=== PATIENT | female | born 1975 | race Caucasian/White ===

== ENCOUNTER 2016-11-27 15:56 | Emergency (ER) | payer OTHER ==
--- NOTE | 2016-11-27 17:19 | DIAGNOSTIC IMAGING REPORT ---
PROCEDURE: XR FOOT 3 VIEWS - LEFT INDICATION: TRAUMA/INJURY TECHNIQUE: Three views. COMPARISON: None. FINDINGS: Osseous structures and joint spaces are normal. IMPRESSION: 1. Normal left foot.
--- NOTE | 2016-11-27 17:29 | ED CLINICAL REPORT ---
Clinical Report - Physicians/Mid Levels [facility] [address] [place] [place] [address] 11/27/2016 15:56 Patient: TIM YOST Time Seen: 16:21 Nov 27 2016. Arrived- By private vehicle. Historian- patient and family. HISTORY OF PRESENT ILLNESS Chief Complaint: Injury to the left foot. The injury happened just prior to arrival. Occurred at home. The patient sustained a direct blow and crush injury. Patient is experiencing severe pain. Patient denies injury to the head or neck. (Patient tripped over her flip flop with her left foot, sustaining injury to her left foot just prior to arrival in the stair. Deniesany prior injury to the area. He denies other injury. Patient reports her son driving her here.). REVIEW OF SYSTEMS The patient complains of pain on weight bearing. All systems otherwise negative, except as recorded above. PAST HISTORY The patient has not had a prior injury to the same area. Problems: Cellulitis. Asthma. MRSA Infection. Gastritis. Ovarian Cyst. Abdominal Pain. Bronchitis. Sprain. Dental Abscess. Otitis Media. Headache. Tension-Type Headache. Substance Abuse. Acute Pain. Sinusitis. Immunizations. LNMP - Last Normal Menstrual Period. Herpes Genitalis. Lymphadenitis. Additional Surgeries: Back Surgery. Hysterectomy. Oophorectomy. Salpingectomy. Shoulder Surgery. Tubal Ligation. Medications: None. Allergies: No Known Drug Allergy. SOCIAL HISTORY Smoker- current status unknown. No alcohol use or drug use. ADDITIONAL NOTES The nursing notes have been reviewed. PHYSICAL EXAM Vital Signs: 11/27/2016 16:04 HR: 114. RR: 20. O2 saturation: 98%. Temp: 98.2 F. Appearance: Alert. Appears to be in pain. Patient in mild distress. Head: Head atraumatic. Neck: Normal inspection. Neck supple. CVS: Normal heart rate and rhythm. Heart sounds normal. Respiratory: No respiratory distress. Breath sounds normal. Skin: Skin warm. Extremities: Foot/ankle soft-tissue tenderness. Ankle stable. Left medial ankle. No tenderness or laceration. Left lateral ankle. No tenderness or swelling. Base of the left 5th metatarsal: tenderness, swelling and abrasion. Weight bearing painful. Neurovascular intact distally. No laceration, puncture wound, foreign body or deformity. Left heel. No tenderness or swelling. No signs of infection present in the feet or ankles. (no calcaneous, no lateral malleolus, ankle stable.). Gait: Gait not tested due to pain. Neuro: Oriented X 3. LABS, X-RAYS, AND EKG Lt Foot X-ray: (IMPRESSION: 1. Normal left foot. Electronically Final signed by:Jesus Prieto MD 11/27/2016 5:20:03 PM). PROGRESS AND PROCEDURES Course of Care: X-ray reviewed no signs of obvious fracture. Patient's continues to have pain, small abrasion overlying which was irrigated and dressings applied. Patient placed in a boot, medication as R fracture she is to follow-up in 8-10 days if the pain persists. Patient has crutches at home. Patient given a medication here. She can utilize a boot, case there is a fracture she would've had the correct treatment. No obvious signs of fracture in the ER today. 11/27/2016 16:16 HR: 105. Patient is stable. Symptoms better. Patient/family counseled. Disposition: Discharged. Condition: good. CLINICAL IMPRESSION Acute pain. Single superficial abrasion to the left foot.Treatment of abrasion not delayed. No infection or abrasion with foreign body present. Contusion to the left foot. Crush injury to the left foot. INSTRUCTIONS Apply ice. Protect wound and keep wound area clean. Apply bacitracin twice daily. Elevate affected areas above chest level. You may walk and bear weight as tolerated. (YOUR XRAY LOOKS GREAT, as read by me and radiology If your pain persists, does not improve over the next 8-10 days for a swallow to have repeat imaging, sometimes small fractures are missed on initial x-ray due to overlying of the bone and structure in nature.). Prescription Medications: Hydrocodone/APAP 5mg / 325mg: take 1 orally every 6 hours as needed for pain. Dispense twelve (12). No refill. Follow-up: Follow up with your doctor in seven days as needed. Follow-up with: [facility], , [address], , [place], [address]; Micah Klein DPM, Podiatry, , [address] [facility] [facility] [address], [place], [address] (Electronically signed by Eufemia Nuno P.A.-C 11/27/2016 18:21)
--- NOTE | 2016-11-27 17:29 | ED CLINICAL REPORT ---
Clinical Report - Physicians/Mid Levels [facility] [address] [place] [address] 11/27/2016 15:56 Patient: TIM YOST Time Seen: 16:21 Nov 27 2016. Arrived- By private vehicle. Historian- patient and family. HISTORY OF PRESENT ILLNESS Chief Complaint: Injury to the left foot. The injury happened just prior to arrival. Occurred at home. The patient sustained a direct blow and crush injury. Patient is experiencing severe pain. Patient denies injury to the head or neck. (Patient tripped over her flip flop with her left foot, sustaining injury to her left foot just prior to arrival in the stair. Deniesany prior injury to the area. He denies other injury. Patient reports her son driving her here.). REVIEW OF SYSTEMS The patient complains of pain on weight bearing. All systems otherwise negative, except as recorded above. PAST HISTORY The patient has not had a prior injury to the same area. Problems: Cellulitis. Asthma. MRSA Infection. Gastritis. Ovarian Cyst. Abdominal Pain. Bronchitis. Sprain. Dental Abscess. Otitis Media. Headache. Tension-Type Headache. Substance Abuse. Acute Pain. Sinusitis. Immunizations. LNMP - Last Normal Menstrual Period. Herpes Genitalis. Lymphadenitis. Additional Surgeries: Back Surgery. Hysterectomy. Oophorectomy. Salpingectomy. Shoulder Surgery. Tubal Ligation. Medications: None. Allergies: No Known Drug Allergy. SOCIAL HISTORY Smoker- current status unknown. No alcohol use or drug use. ADDITIONAL NOTES The nursing notes have been reviewed. PHYSICAL EXAM Vital Signs: 11/27/2016 16:04 HR: 114. RR: 20. O2 saturation: 98%. Temp: 98.2 F. Appearance: Alert. Appears to be in pain. Patient in mild distress. Head: Head atraumatic. Neck: Normal inspection. Neck supple. CVS: Normal heart rate and rhythm. Heart sounds normal. Respiratory: No respiratory distress. Breath sounds normal. Skin: Skin warm. Extremities: Foot/ankle soft-tissue tenderness. Ankle stable. Left medial ankle. No tenderness or laceration. Left lateral ankle. No tenderness or swelling. Base of the left 5th metatarsal: tenderness, swelling and abrasion. Weight bearing painful. Neurovascular intact distally. No laceration, puncture wound, foreign body or deformity. Left heel. No tenderness or swelling. No signs of infection present in the feet or ankles. (no calcaneous, no lateral malleolus, ankle stable.). Gait: Gait not tested due to pain. Neuro: Oriented X 3. LABS, X-RAYS, AND EKG Lt Foot X-ray: (IMPRESSION: 1. Normal left foot. Electronically Final signed by:Jesus Prieto MD 11/27/2016 5:20:03 PM). PROGRESS AND PROCEDURES Course of Care: X-ray reviewed no signs of obvious fracture. Patient's continues to have pain, small abrasion overlying which was irrigated and dressings applied. Patient placed in a boot, medication as R fracture she is to follow-up in 8-10 days if the pain persists. Patient has crutches at home. Patient given a medication here. She can utilize a boot, case there is a fracture she would've had the correct treatment. No obvious signs of fracture in the ER today. 11/27/2016 16:16 HR: 105. Patient is stable. Symptoms better. Patient/family counseled. Disposition: Discharged. Condition: good. CLINICAL IMPRESSION Acute pain. Single superficial abrasion to the left foot.Treatment of abrasion not delayed. No infection or abrasion with foreign body present. Contusion to the left foot. Crush injury to the left foot. INSTRUCTIONS Apply ice. Protect wound and keep wound area clean. Apply bacitracin twice daily. Elevate affected areas above chest level. You may walk and bear weight as tolerated. (YOUR XRAY LOOKS GREAT, as read by me and radiology If your pain persists, does not improve over the next 8-10 days for a swallow to have repeat imaging, sometimes small fractures are missed on initial x-ray due to overlying of the bone and structure in nature.). Prescription Medications: Hydrocodone/APAP 5mg / 325mg: take 1 orally every 6 hours as needed for pain. Dispense twelve (12). No refill. Follow-up: Follow up with your doctor in seven days as needed. Follow-up with: [facility], , [address], , [place], [address]; Micah Klein DPM, Podiatry, , [address] [facility] [address], [place], [address] (Electronically signed by Eufemia Nuno P.A.-C 11/27/2016 18:21)
--- NOTE | 2016-11-27 17:29 | ED ORDER SUMMARY ---
..... Patient: TMI YOST OrderSheet [facility] VisitID: [id number] [place] [address] 41y, F Registration Date/Time: 11/27/2016 ORDER SHEET Weight: 85.7 kg (stated) Allergies: No Known Drug Allergy GENERAL ORDERS: Foot 3V Left Urgent (16:37 11/27/2016 EKoroleva P.A.-C) (Ack 16:38 PWeiler ER Tech1) (17:04 MCampbell) Crutches (17:27 11/27/2016 EKoroleva P.A.-C) (17:49 LAbe R.N.) Post-op Shoe (17:27 11/27/2016 EKoroleva P.A.-C) (17:49 LAbe R.N.) (Cancelled: Other17:57 EKoroleva P.A.-C) Wound Irrigation (irrigation/ bacitracin/ non adhesive/ post op shoe) (17:28 11/27/2016 EKoroleva P.A.-C) (17:47 LAbe R.N.) Splint (LE) (Left) (boot) (17:57 11/27/2016 EKoroleva P.A.-C) MEDICATION ORDERS: Motrin PO 800 mg (NOW) (16:19 11/27/2016 EKoroleva P.A.-C) (Ack 16:23 LAbe R.N.) (16:33 LAbe R.N.) Hydrocodone-APAP PO 5/325 mg (NOW, HIGH ALERT MEDICATION) (16:19 11/27/2016 EKoroleva P.A.-C) (Ack 16:23 LAbe R.N.) (16:33 LAbe R.N.) LET Topical 1 application (NOW) (16:19 11/27/2016 EKoroleva P.A.-C) (Ack 16:23 LAbe R.N.) (16:34 LAbe R.N.) Tdap IM 0.5 mL (NOW, per protocol) (16:19 11/27/2016 EKoroleva P.A.-C) (Ack 16:23 LAbcyril R.N.) (16:35 LAbcyril R.N.) IV FLUIDS: ORDER SHEET NOTES: [Electronically signed by Eufemia Nuno P.A.-C (18:21 11/27/2016)] [Electronically signed by Liz Conner R.N. (19:29 11/27/2016)] [Electronically locked/signed by Liz Conner R.N. (19:29 11/27/2016)]
--- NOTE | 2016-11-27 17:29 | ED ORDER SUMMARY ---
..... Patient: TIM YOST OrderSheet [facility] VisitID: [id number] [place] [address] 41y, F Registration Date/Time: 11/27/2016 ORDER SHEET Weight: 85.7 kg (stated) Allergies: No Known Drug Allergy GENERAL ORDERS: Foot 3V Left Urgent (16:37 11/27/2016 EKoroleva P.A.-C) (Ack 16:38 PWeiler ER Tech1) (17:04 MCampbell) Crutches (17:27 11/27/2016 EKoroleva P.A.-C) (17:49 LAbe R.N.) Post-op Shoe (17:27 11/27/2016 EKoroleva P.A.-C) (17:49 LAbe R.N.) (Cancelled: Other17:57 EKoroleva P.A.-C) Wound Irrigation (irrigation/ bacitracin/ non adhesive/ post op shoe) (17:28 11/27/2016 EKoroleva P.A.-C) (17:47 LAbe R.N.) Splint (LE) (Left) (boot) (17:57 11/27/2016 EKoroleva P.A.-C) MEDICATION ORDERS: Motrin PO 800 mg (NOW) (16:19 11/27/2016 EKoroleva P.A.-C) (Ack 16:23 LAbe R.N.) (16:33 LAbe R.N.) Hydrocodone-APAP PO 5/325 mg (NOW, HIGH ALERT MEDICATION) (16:19 11/27/2016 EKoroleva P.A.-C) (Ack 16:23 LAbe R.N.) (16:33 LAbe R.N.) LET Topical 1 application (NOW) (16:19 11/27/2016 EKoroleva P.A.-C) (Ack 16:23 LAbe R.N.) (16:34 LAbe R.N.) Tdap IM 0.5 mL (NOW, per protocol) (16:19 11/27/2016 EKoroleva P.A.-C) (Ack 16:23 LAbcyril R.N.) (16:35 LAbcyril R.N.) IV FLUIDS: ORDER SHEET NOTES: [Electronically signed by Eufemia Nuno P.A.-C (18:21 11/27/2016)] [Electronically signed by Liz Conner R.N. (19:29 11/27/2016)] [Electronically locked/signed by Liz Conner R.N. (19:29 11/27/2016)]
--- NOTE | 2016-11-27 17:29 | ED NURSING NOTES ---
Clinical Report - Nurses [facility] [address] [place] [address] 11/27/2016 15:56 Patient: TIM YOST TRIAGE Triage time 16:05. Acuity: LEVEL 4. Chief Complaint: LEFT LOWER EXTREMITY PAIN and REDNESS. Alert. SEPSIS SCREEN: Sepsis Screen. Negative (no infection suspected/documented). ANIKET COMA SCORE: Aniket Coma Scale: 15- eyes open spontaneously (4); best verbal response- oriented x 4 (5); best motor response- obeys commands (6). --16:13 Liz Conner R.N. 16:04 11/27/16. HR: 114. RR: 20. O2 saturation: 98%. Temp: 98.2 F. Pain level now 02/27. --16:13 Liz Conner R.N. 16:05. --19:29 Liz Conner R.N. 16:04 11/27/16. BP: 118/82. --19:29 Liz Conner R.N. Weight: 85.7 kg stated. Height/Length: 63 inches Per Patient. BMI: 33.5. --16:09 Liz Conner R.N. Medications None. --16:08 Liz Conner R.N. Medication/allergy information source: the patient. --16:13 Liz Conner R.N. Allergies No Known Drug Allergy. --16:08 Liz Conner R.N. History Arrived by private vehicle. Historian: patient. Accompanied by family. Primary physician ([facility]). Injury occurred. This occurred (4 hours ago). Occurred at home. It is described as radiating to the left (toes). ( stepped in between concrete pavers and cut side of left foot then about an hour later increasing pain, unable to walk on foot, can't move most toes.). Treatment SOCIAL MEDIA INTERN: None. (neosporin). PAST MEDICAL HX: Tetanus status: unknown. Has had a hysterectomy. SOCIAL HX: Current every day heavy tobacco smoker- less than 1 pack per day. No alcohol use or drug use. No infectious disease exposure. ABUSE ASSESSMENT: No report of abuse. SELF HARM ASSESSMENT: A self harm assessment was performed. The patient answered "no" to the question "Do you have thoughts of harming or killing yourself?" and "Are you here because you tried to hurt yourself?". FALL RISK ASSESSMENT: Fall risk assessment completed. No fall risk identified. NUTRITIONAL RISK ASSESSMENT: The nutritional risk assessment revealed no deficiencies. FUNCTIONAL ASSESSMENT: Functional assessment: no impairments noted. LEARNING NEEDS ASSESSMENT: The learning needs assessment revealed no barriers. SKIN INTEGRITY ASSESSMENT: Skin integrity risk assessment completed. No skin integrity risk identified. --16:13 Liz Conner R.N. PROBLEMS: Cellulitis. Asthma. MRSA Infection. Gastritis. Ovarian Cyst. Abdominal Pain. Bronchitis. Sprain. Dental Abscess. Otitis Media. Headache. Tension-Type Headache. Substance Abuse. Acute Pain. Sinusitis. Immunizations. LNMP - Last Normal Menstrual Period. Herpes Genitalis. Lymphadenitis. --16:09 Liz Conner R.N. ADDITIONAL SURGERIES: Back Surgery. Hysterectomy. Oophorectomy. Salpingectomy. Shoulder Surgery. Tubal Ligation. --16:09 Liz Conner R.N. Interventions ID band on patient. To treatment room. --16:13 Liz Conner R.N. PHYSICAL ASSESSMENT To room via wheelchair. GENERAL / NEURO / PSYCH: Oriented X 4. Alert. Appears in pain. EXTREMITIES: Base of the left 5th metatarsal: tenderness, swelling, erythema and small and superficial abrasion. Weight bearing painful and limited. SKIN: Skin is warm and dry. --16:15 Liz Conner R.N. NURSING PROGRESS NOTES Cold pack applied. Reassurance given. Two patient identifiers checked. Call light placed in reach. Side rails up x 2. Bed placed in lowest position. Brakes of bed on. Patient ready for evaluation- chart flagged. ED physician notified. --16:15 Liz Conner R.N. 16:16 11/27/16. HR: 105. --16:16 Liz Conner R.N. 16:33 11/27/2016 Motrin PO 800 mg given. Allergies verified and confirmed 5 rights. --16:33 Liz Conner R.N. 16:33 11/27/2016 Hydrocodone-APAP (Hydrocodone-Acetaminophen) PO 5/325 mg Tablets 1 tab given. Allergies verified, confirmed 5 rights and sedative warning given to the patient. --16:33 Liz Conner R.N. 16:34 11/27/2016 LET Topical 1 application. Allergies verified and confirmed 5 rights. (applied to left lateral foot with cotton balls taped to foot). --16:34 Liz Conner R.N. 16:35 11/27/2016 TDAP IM 0.5 mL given. (Lot#: [id number], expiration date: 10/24/2018, Scrubber Machine Tender: [employer]). Given in the right deltoid. Allergies verified and confirmed 5 rights. Vaccine information statement provided to the patient. --16:35 Liz Conner R.N. Wound cleansed with sterile saline. Applied dressing (ointment and a band aid.). --17:22 Unique Weldon ER Tech1 ( walker applied to right leg. Pt. states she has her own crutches.). --17:49 Unique Weldon ER Tech1. DISPOSITION / DISCHARGE 18:04. Departure time: 1804. Condition at departure: unchanged and stable. No learning barriers present. Discharge instructions provided and reviewed with the patient. Patient verbalized understanding. Written instructions provided in Hong Konger. The patient was discharged home and accompanied by spouse. She left the Emergency Department in a wheelchair and via private vehicle. Spouse driving. --19:26 Liz Conner R.N. 18:00 11/27/16. BP: 113/84. HR: 87. RR: 18. O2 saturation: 96%. Temp: 97.5 F. Pain level now: 12/28. --19:26 Liz Conner R.N. Locked/Released at 11/27/2016 19:29 by Liz Conner R.N.
--- NOTE | 2016-11-27 17:29 | ED NURSING NOTES ---
Clinical Report - Nurses [facility] [address] [place] [address] 11/27/2016 15:56 Patient: TIM YOST TRIAGE Triage time 16:05. Acuity: LEVEL 4. Chief Complaint: LEFT LOWER EXTREMITY PAIN and REDNESS. Alert. SEPSIS SCREEN: Sepsis Screen. Negative (no infection suspected/documented). ANIKET COMA SCORE: Aniket Coma Scale: 15- eyes open spontaneously (4); best verbal response- oriented x 4 (5); best motor response- obeys commands (6). --16:13 Liz Conner R.N. 16:04 11/27/16. HR: 114. RR: 20. O2 saturation: 98%. Temp: 98.2 F. Pain level now 02/27. --16:13 Liz Conner R.N. 16:05. --19:29 Liz Conner R.N. 16:04 11/27/16. BP: 118/82. --19:29 Liz Conner R.N. Weight: 85.7 kg stated. Height/Length: 63 inches Per Patient. BMI: 33.5. --16:09 iLz Conner R.N. Medications None. --16:08 Liz Conner R.N. Medication/allergy information source: the patient. --16:13 Liz Conner R.N. Allergies No Known Drug Allergy. --16:08 Liz Conner R.N. History Arrived by private vehicle. Historian: patient. Accompanied by family. Primary physician ([facility]). Injury occurred. This occurred (4 hours ago). Occurred at home. It is described as radiating to the left (toes). ( stepped in between concrete pavers and cut side of left foot then about an hour later increasing pain, unable to walk on foot, can't move most toes.). Treatment FARM WORKER: None. (neosporin). PAST MEDICAL HX: Tetanus status: unknown. Has had a hysterectomy. SOCIAL HX: Current every day heavy tobacco smoker- less than 1 pack per day. No alcohol use or drug use. No infectious disease exposure. ABUSE ASSESSMENT: No report of abuse. SELF HARM ASSESSMENT: A self harm assessment was performed. The patient answered "no" to the question "Do you have thoughts of harming or killing yourself?" and "Are you here because you tried to hurt yourself?". FALL RISK ASSESSMENT: Fall risk assessment completed. No fall risk identified. NUTRITIONAL RISK ASSESSMENT: The nutritional risk assessment revealed no deficiencies. FUNCTIONAL ASSESSMENT: Functional assessment: no impairments noted. LEARNING NEEDS ASSESSMENT: The learning needs assessment revealed no barriers. SKIN INTEGRITY ASSESSMENT: Skin integrity risk assessment completed. No skin integrity risk identified. --16:13 Liz Conner R.N. PROBLEMS: Cellulitis. Asthma. MRSA Infection. Gastritis. Ovarian Cyst. Abdominal Pain. Bronchitis. Sprain. Dental Abscess. Otitis Media. Headache. Tension-Type Headache. Substance Abuse. Acute Pain. Sinusitis. Immunizations. LNMP - Last Normal Menstrual Period. Herpes Genitalis. Lymphadenitis. --16:09 Liz Conner R.N. ADDITIONAL SURGERIES: Back Surgery. Hysterectomy. Oophorectomy. Salpingectomy. Shoulder Surgery. Tubal Ligation. --16:09 Liz Conner R.N. Interventions ID band on patient. To treatment room. --16:13 Liz Conner R.N. PHYSICAL ASSESSMENT To room via wheelchair. GENERAL / NEURO / PSYCH: Oriented X 4. Alert. Appears in pain. EXTREMITIES: Base of the left 5th metatarsal: tenderness, swelling, erythema and small and superficial abrasion. Weight bearing painful and limited. SKIN: Skin is warm and dry. --16:15 Liz Conner R.N. NURSING PROGRESS NOTES Cold pack applied. Reassurance given. Two patient identifiers checked. Call light placed in reach. Side rails up x 2. Bed placed in lowest position. Brakes of bed on. Patient ready for evaluation- chart flagged. ED physician notified. --16:15 Liz Conner R.N. 16:16 11/27/16. HR: 105. --16:16 Liz Conner R.N. 16:33 11/27/2016 Motrin PO 800 mg given. Allergies verified and confirmed 5 rights. --16:33 Liz Conner R.N. 16:33 11/27/2016 Hydrocodone-APAP (Hydrocodone-Acetaminophen) PO 5/325 mg Tablets 1 tab given. Allergies verified, confirmed 5 rights and sedative warning given to the patient. --16:33 Liz Conner R.N. 16:34 11/27/2016 LET Topical 1 application. Allergies verified and confirmed 5 rights. (applied to left lateral foot with cotton balls taped to foot). --16:34 Liz Conner R.N. 16:35 11/27/2016 TDAP IM 0.5 mL given. (Lot#: [id number], expiration date: 10/24/2018, Wrapper Counter: [employer]). Given in the right deltoid. Allergies verified and confirmed 5 rights. Vaccine information statement provided to the patient. --16:35 Liz Conner R.N. Wound cleansed with sterile saline. Applied dressing (ointment and a band aid.). --17:22 Unique Weldon ER Tech1 ( walker applied to right leg. Pt. states she has her own crutches.). --17:49 Unique Weldon ER Tech1. DISPOSITION / DISCHARGE 18:04. Departure time: 1804. Condition at departure: unchanged and stable. No learning barriers present. Discharge instructions provided and reviewed with the patient. Patient verbalized understanding. Written instructions provided in [place]ian. The patient was discharged home and accompanied by spouse. She left the Emergency Department in a wheelchair and via private vehicle. Spouse driving. --19:26 Liz Conner R.N. 18:00 11/27/16. BP: 113/84. HR: 87. RR: 18. O2 saturation: 96%. Temp: 97.5 F. Pain level now: 12/28. --19:26 Liz Conner R.N. Locked/Released at 11/27/2016 19:29 by Liz Conner R.N.
--- NOTE | 2016-11-27 19:29 | ED MED RECONCILIATION SUMMARY ---
Patient: TIM YOST Medication Reconciliation Report [facility] VisitID: [id number] [place] [address] 41y, F Registration Date/Time: 11/27/2016 Weight: 85.7 kg Height/Length: 63 in. BMI: 33.5 ALLERGIES: No Known Drug Allergy The patient's Home Medications are listed below: NONE. The source(s) of the original Home Medication information: patient The following Medications were given to the patient in the Emergency Department: Motrin [PO] PO 800 mg, administered: 11/27/2016 4:33:00 PM Hydrocodone-APAP [PO] PO 1 tab, administered: 11/27/2016 4:33:00 PM LET [Topical] Topical 1 application, administered: 11/27/2016 4:34:00 PM TDAP [IM] IM 0.5 mL, administered: 11/27/2016 4:35:00 PM The following Medications were prescribed to the patient: Hydrocodone/APAP 5mg / 325mg: take 1 orally every 6 hours as needed for pain. Dispense twelve (12). No refill. -- Eufemia Nuno P.A.-C
--- NOTE | 2016-11-27 19:29 | ED MAR SUMMARY ---
..... Medication Administration Record [facility] [address] [place] [address] Patient: TIM YOST Visit ID: [id number] 41y, F Weight: 85.7 kg Height/Length: 63 in BMI: 33.5 ALLERGIES: No Known Drug Allergy Given 16:11/27/2016 Liz Conner R.N. Medication Administered: MOTRIN [PO], Dose: 800 mg PO. Medication Ordered: Motrin PO 800 mg (NOW). Given 16:11/27/2016 Liz Conner R.N. Medication Administered: HYDROCODONE-APAP [PO] (HYDROCODONE-ACETAMINOPHEN), Dose: 1 tab 5/325 mg Tablets PO. Medication Ordered: Hydrocodone-APAP PO 5/325 mg (NOW, HIGH ALERT MEDICATION). Given 16:11/27/2016 Liz Conner R.N. Medication Administered: LET [TOPICAL], Dose: 1 application Topical. Medication Ordered: LET Topical 1 application (NOW). Given 16:11/27/2016 Liz Conner R.N. Medication Administered: TDAP [IM], Dose: 0.5 mL IM. Medication Ordered: Tdap IM 0.5 mL (NOW, per protocol).
--- NOTE | 2016-11-27 19:29 | ED MAR SUMMARY ---
..... Medication Administration Record [facility] [address] [place] [address] Patient: TIM YOST Visit ID: [id number] 41y, F Weight: 85.7 kg Height/Length: 63 in BMI: 33.5 ALLERGIES: No Known Drug Allergy Given 16:11/27/2016 Liz Conner R.N. Medication Administered: MOTRIN [PO], Dose: 800 mg PO. Medication Ordered: Motrin PO 800 mg (NOW). Given 16:11/27/2016 Liz Conner R.N. Medication Administered: HYDROCODONE-APAP [PO] (HYDROCODONE-ACETAMINOPHEN), Dose: 1 tab 5/325 mg Tablets PO. Medication Ordered: Hydrocodone-APAP PO 5/325 mg (NOW, HIGH ALERT MEDICATION). Given 16:11/27/2016 Liz Conner R.N. Medication Administered: LET [TOPICAL], Dose: 1 application Topical. Medication Ordered: LET Topical 1 application (NOW). Given 16:11/27/2016 Liz Conner R.N. Medication Administered: TDAP [IM], Dose: 0.5 mL IM. Medication Ordered: Tdap IM 0.5 mL (NOW, per protocol).
--- NOTE | 2016-11-27 19:29 | ED MED RECONCILIATION SUMMARY ---
Patient: TIM YOST Medication Reconciliation Report [facility] VisitID: [id number] [place] [address] 41y, F Registration Date/Time: 11/27/2016 Weight: 85.7 kg Height/Length: 63 in. BMI: 33.5 ALLERGIES: No Known Drug Allergy The patient's Home Medications are listed below: NONE. The source(s) of the original Home Medication information: patient The following Medications were given to the patient in the Emergency Department: Motrin [PO] PO 800 mg, administered: 11/27/2016 4:33:00 PM Hydrocodone-APAP [PO] PO 1 tab, administered: 11/27/2016 4:33:00 PM LET [Topical] Topical 1 application, administered: 11/27/2016 4:34:00 PM TDAP [IM] IM 0.5 mL, administered: 11/27/2016 4:35:00 PM The following Medications were prescribed to the patient: Hydrocodone/APAP 5mg / 325mg: take 1 orally every 6 hours as needed for pain. Dispense twelve (12). No refill. -- Eufemia Nuno P.A.-C
--- NOTE | 2016-11-27 19:29 | ED DISCHARGE INSTRUCTIONS ---
Patient: TIM YOST General Instructions [facility] VisitID: [id number] [address], [place], [place] [id number] 41y, F Registration Date/Time: 11/27/2016 Acute pain. Single superficial abrasion to the left foot.Treatment of abrasion not delayed. No infection or abrasion with foreign body present. Contusion to the left foot. Crush injury to the left foot. INSTRUCTIONS Apply ice. Protect wound and keep wound area clean. Apply bacitracin twice daily. Elevate affected areas above chest level. You may walk and bear weight as tolerated. (YOUR XRAY LOOKS GREAT, as read by me and radiology If your pain persists, does not improve over the next 8-10 days for a swallow to have repeat imaging, sometimes small fractures are missed on initial x-ray due to overlying of the bone and structure in nature.). Prescription Medications: Hydrocodone/APAP 5mg / 325mg: take 1 orally every 6 hours as needed for pain. Dispense twelve (12). No refill. Follow-up: Follow up with your doctor in seven days as needed. Follow-up with: [facility], [facility], , [address], [facility], [id number]; Micah Klein DPM, Podiatry, , [address], [facility] [address] ADDITIONAL INFORMATION Abrasions Abrasions are skin scrapes. Their treatment depends on how large and deep the abrasion is. Home Care: If you were given a bandage, change it once a day. If your bandage sticks to the wound, soak it in warm water until it loosens. Wash the area with soap and water to remove all the cream/ointment. You may do this in a sink, under a tub faucet or shower. Rinse off the soap and pat dry with a clean towel. Reapply cream/ointment according to your doctor's instructions. This will prevent infection and help prevent the bandage from sticking. Cover the wound with a fresh non-stick bandage (Telfa). Repeat steps 1 to 4 daily, or as directed by your doctor. If the bandage becomes wet or dirty, change it as soon as possible. You may use acetaminophen (Tylenol) or ibuprofen (Motrin, Advil) to control pain, unless another pain medicine was prescribed. [ NOTE : If you have chronic liver or kidney disease or ever had a stomach ulcer or GI bleeding, talk with your doctor before using these medicines.] Do not use ibuprofen in children under six months of age. Follow Up with your physician or this facility as directed by our staff. Most skin wounds heal within ten days. However, an infection may occur despite proper treatment. Therefore, look for the early signs of infection listed below. Get Prompt Medical Attention if any of the following occur: Increasing pain in the wound Increasing redness or swelling Pus coming from the wound Fever of 100.4F (38C) or higher, or as directed by your healthcare provider Contusion: Foot You have a CONTUSION of your foot. This causes local pain, swelling and sometimes bruising. There are no broken bones. This injury may take from a few days to a few weeks to heal. Home Care: 1) Keep your LEG elevated to reduce pain and swelling. This is very important during the first 48 hours. If walking causes pain, stay off the injured leg until you can walk without pain. 2) If CRUTCHES have been advised, do not bear full weight on the injured leg until you can do so without pain. You may return to sports when you are able to hop and run on the injured leg without pain. 3) Make an ice pack (ice cubes in a plastic bag, wrapped in a towel) and apply for 20 minutes every 1-2 hours the first day. Continue this 3-4 times a day until the swelling goes down. 4) You may use acetaminophen (Tylenol) or ibuprofen (Motrin, Advil) to control pain, unless another pain medicine was prescribed. [ NOTE : If you have chronic liver or kidney disease or ever had a stomach ulcer or GI bleeding, talk with your doctor before using these medicines.] Follow Up with your doctor or this facility if you are not starting to improve within the next THREE days. [NOTE: If X-rays were taken, they will be reviewed by a radiologist. You will be notified of any new findings that may affect your care.] Get Prompt Medical Attention if any of the following occur: -- Pain or swelling increases -- Toes become cold, blue, numb or tingly -- Redness, warmth or drainage from the skin Crush Injury, Foot (No Fx) A crush injury to your foot causes local pain, swelling, and sometimes bruising. There are no broken bones. This injury takes from a few days to a few weeks to heal. If the toenail has been severely injured, it may fall off in 12 weeks. A new one will usually start to grow back within a month. Home care The following guidelines will help you care for your wound at home: You may be given a splint, cast, shoe, or boot to prevent movement at the injury. Unless you were told otherwise, use crutches or a walker anddo notbear weight on the injured foot until cleared by your doctor to do so. (Crutches and walkers can be rented at many pharmacies and surgical/orthopedic supply stores). Do not put weight on a splint; it will break. Keep your leg elevated to reduce pain and swelling. When sleeping, place a pillow under the injured leg. When sitting, support the injured leg so it is level with your waist. This is very important during the first 48 hours. Apply an ice pack (ice cubes in a plastic bag, wrapped in a towel) over the injured area for 20 minutes every 12 hours the first day for pain relief. Continue this 34 times a day until the pain and swelling goes away. You may use acetaminophen or ibuprofen to control pain, unless another pain medicine was prescribed.If you have chronic liver or kidney disease or ever had a stomach ulcer or GI bleeding, talk with your doctor before using these medicines. Keep the splint/cast/boot/shoe dry. When bathing, protect it with a large plastic bag, rubber-banded at the top end. If a fiberglass splint/cast or boot gets wet, you can dry it with a hair-dryer. Unless told otherwise, you can remove a boot or shoe to bathe. If your injury includes exposed cuts or scrapes, clean these daily with soap and water. Apply antibiotic ointment. Watch for the signs of infection listed below. Follow-up care Follow up with your doctor as advised. Return sooner if you are not starting to improve within the nextthreedays. If you were given a splint, it may be changed to a cast or boot at your follow-up visit. Note:X-rays will be reviewed by a radiologist. You will be notified of any new findings that may affect your care. When to seek medical care Get prompt medical attention if any of the following occur: The plaster cast or splint becomes wet or soft The fiberglass cast or splint remains wet for more than 24 hours Increased tightness or pain under the cast or splint Toes become swollen, cold, blue, numb, or tingly Redness, warmth, swelling, drainage from the wound, or foul odor from a cast or splint Fever of 100.4F(38C) or higher, or as directed by your health care provider You have been given the following additional information: Abrasion Contusion, Foot Crush Injury, Foot/Toe You may walk and bear weight as tolerated. (Electronically signed by Eufemia Nuno P.A.-C 11/27/2016 18:21)
== END 2016-11-27 18:04 | disposition home or self-care (01) ==
LOC: ED SRH 15:56
DX: S90.32XA Contusion of left foot, initial encounter (principal); W23.1XXA Caught, crushed, jammed, or pinched between stationary objects, initial encounter; Y93.01 Activity, walking, marching and hiking; Y92.009 Unspecified place in unspecified non-institutional (private) residence as the place of occurrence of the external cause; F17.210 Nicotine dependence, cigarettes, uncomplicated